=== PATIENT | female | born 1945 | race Caucasian/White ===

== ENCOUNTER → 2023-11-14 12:10 | Outpatient (REF) | payer OTHER, SELFPAY | LOC: HWWDC 12:10 | PROVIDERS: ATTENDING PHYSICIAN Family Medicine; REFERRING PHYSICIAN Obstetrics & Gynecology Gynecology | DX: Z12.31 Encounter for screening mammogram for malignant neoplasm of breast (principal) | CPT/HCPCS: 77063; 77067 ==

== ENCOUNTER 2024-01-15 16:00 | Emergency (ER) | payer OTHER, SELFPAY ==
[2024-01-15 16:01] VITALS: BP 114/62
--- NOTE | 2024-01-15 16:31 | ED.GENMED ---
History of Present Illness
General
Chief Complaint: Cough
Time Seen by Provider: 01/15/24 16:31
Travel History
Have you had any contact with someone who has COVID-19?: No
Do you have any symptoms of coronavirus? Fever > 100 degrees, chills, cough, shortness of breath, sore throat, loss of taste or smell, muscle aches, or headache?: No
History of Present Illness
History of Present Illness:
HPI: Patient presents after being found to be COVID-positive at urgent care today. Of note, the patient also has had frequent URI type of symptoms over the past month and was twice treated with doxycycline. She went to a different urgent care
today where she was found to be COVID-19 positive. She is concerned because of ongoing cough and a general unwell feeling as well as sensation of fluid buildup in the ears. She also had a sensation of wheeze earlier.
EXAM:
GENERAL: Well appearing in no distress
HEENT: Moist oral mucosa, there is some bilateral effusions noted at the TM with no significant erythema, the canals are widely patent
CARDIOVASCULAR: No murmurs, normal heart rate, regular rhythm, No chest wall tenderness
PULMONARY: No respiratory distress, breath sounds are clear and equal, there is no wheeze
ABDOMEN: Soft with no peritoneal signs, no tenderness
NEUROLOGIC: Excellent strength all extremities, no coordination deficits
PSYCHIATRIC: Appropriate mental status, normal insight and judgement
EXTREMITIES: Nontender, no edema, moves all extremities equally
SKIN: No rash, no lesions
TIME OF INITIAL ENCOUNTER: 4:45 PM
NUMBER AND COMPLEXITY OF PROBLEMS ADDRESSED AT THE ENCOUNTER
� Chronic conditions affecting care: History of pancreatic tumor, GERD, lymphoma, anxiety
� Acute Exacerbation and/or Progression of Chronic Illness: This is an acute problem
� Differential Diagnosis includes: COVID-19, other viral syndrome, pneumonia unlikely
AMOUNT AND/OR COMPLEXITY OF DATA TO BE REVIEWED AND ANALYZED
� I performed an independent evaluation of and my interpretation is:
EKG:
CT:
X-rays: Chest x-ray is clear and shows no sign of pneumonia
Laboratory Studies:
Other:
� Review of other/old records: The patient had a chest x-ray that showed no sign of pneumonia in December 2023
� Clinical information was obtained by an independent historian: None needed
� Prescriptions/Medications Considered but not given: We talked about risks and benefits of Paxlovid but ultimately she declined Paxlovid.
� Further testing considered but not performed:
RISK OF COMPLICATIONS AND/OR MORBIDITY OR MORTALITY OF PATIENT MANAGEMENT
� Social determinants of health affecting care: Lives at home and cares for her ill
� Discussion with other providers:
� Escalation of care including admission/observation vs risk of discharge considered: The patient was found to be COVID-[address] Rita Dacosta however that she ultimately declined. Will send for chest x-ray
however vital signs are relatively unremarkable. She requested drops for ears however I see no evidence of otitis externa. I recommended Zyrtec-D for the effusion of the ears however this is relatively minor on physical examination. Chest x-ray
is clear and her oxygen levels are normal. Recommended Tylenol for the overall discomfort.
Past History
Past History
ED Past Medical History: Cancer (Lymphoma) and Other (IBS)
ED Past Surgical History: (2) and Other (3/4 Pancreas removed, Tumors from neck removed)
Social History
Tobacco: Former smoker
Alcohol: Daily (wine 1-2)
Personal:
Living: with family
Phy Exam
Physical Exam
Physical Exam:
See HPI
Course
Orders/Labs/Results
Orders:
Orders
01/15/24 16:42
CR Chest - 2 Views Urgent
Comment:
Reason For Exam: COVID (+); cough
01/15/24 16:43
Cetirizine HCl [Zyrtec] 10 mg PO NOW STA
Vital Signs
Initial and Last Documented VS:
Initial Vital Signs
Temp Pulse Resp BP Pulse Ox
99.3 F 83 20 114/62 98
01/15/24 16:01 01/15/24 16:01 01/15/24 16:01 01/15/24 16:01 01/15/24 16:01
Last Documented Vital Signs
Temp Pulse Resp BP Pulse Ox
99.3 F 83 20 114/62 98
01/15/24 16:01 01/15/24 16:01 01/15/24 16:01 01/15/24 16:01 01/15/24 16:01
*Critical Care Note
Total Time (30-74mins, 75-104mins- exclusive of procedures): Not Applicable
ED Attending Note
-
Portions of this chart may have been created with voice recognition software.� Occasional wrong word or��sound alike� substitutions may have occurred due to the inherent limitations of voice recognition software.
Discharge Plan
Departure
Patient Disposition: Home (Routine Discharge)
Date of Disposition: 01/15/24
Time of Disposition: 17:49
Patient with high blood pressure during this ER visit?: Yes
Discharge Problem:
COVID-19
Instructions: COVID-19 ED
Prescriptions:
No Action
zinc acetate 50 mg (zinc) Capsule
50 mg PO HS
omeprazole 40 mg capsule,delayed release(DR/EC)
40 mg PO DAILY
ascorbic acid (vitamin C) [Vitamin C] 500 mg Tablet
500 mg PO DAILY
sertraline 25 mg tablet
25 mg PO DAILY
cholecalciferol (vitamin D3) [Vitamin D3] 25 mcg (1,000 unit) Tablet
25 mcg PO DAILY
cyclobenzaprine 5 mg tablet
5 mg PO HS PRN (Reason: muscle spasm) Qty: 7 0RF
Referrals:
Betty,Mimi K., DO [Family Provider] -
Activity Restrictions/Additional Instructions:
Tylenol would be safest for treatment of symptoms. It is generally not recommended to suppress cough with medication. Regarding the ear discomfort, I recommend trying Zyrtec-D which can be purchased at a pharmacy by asking the pharmacist. You do
not need a prescription for this. Your chest x-ray was clear and there is no sign of pneumonia. Your oxygen levels are excellent. Return here if worse.
Interventions
Interventions:
*Risk Screen - Suicide Last Done: 01/15/24 16:01
*General Assessment Last Done: 01/15/24 16:01
*Neglect/Abuse Screening Last Done: 01/15/24 16:01
*ED COVID-19 Vaccine History Last Done: 01/15/24 16:56
ED- Pulmonary Assessment Last Done: 01/15/24 16:31
Discharge Date and Time
Print Language: COLOM[place]
== END 2024-01-15 17:53 | disposition home or self-care (01) ==
LOC: EMR 16:00
PROVIDERS: EMERGENCY PHYSICIAN Emergency Medicine; FAMILY PHYSICIAN Family Medicine
DX: U07.1 COVID-19 (principal); K58.9 Irritable bowel syndrome, unspecified; Z87.891 Personal history of nicotine dependence
CPT/HCPCS: 99283; 71046

== ENCOUNTER → 2024-11-17 08:22 | Outpatient (REF) | payer OTHER, SELFPAY | LOC: HWWDC 08:22 | PROVIDERS: ATTENDING PHYSICIAN Obstetrics & Gynecology Gynecology; FAMILY PHYSICIAN Family Medicine | DX: Z12.31 Encounter for screening mammogram for malignant neoplasm of breast (principal) | CPT/HCPCS: 77063; 77067 ==

== ENCOUNTER → 2025-06-03 07:14 | Outpatient (REF) | payer OTHER, SELFPAY | LOC: MRI 3T 07:14 | PROVIDERS: ATTENDING PHYSICIAN Nurse Practitioner; FAMILY PHYSICIAN Family Medicine | DX: K86.2 Cyst of pancreas (principal) | CPT/HCPCS: 74183; A9575 ==